=== PATIENT | male | born 1965 | race Caucasian/White ===

== ENCOUNTER 2021-02-11 09:34 | Emergency (ER) | payer MEDICARE, MEDICAID, SELFPAY ==
--- NOTE | ~2021-02-11 | XR_ITS ---
EXAMINATION: XR chest 2V DATE: 02/11/2021 10:38 INDICATION: COPD presenting with shortness of breath and decreased breath sounds TECHNIQUE: PA and lateral views of the chest were obtained. COMPARISON: Chest radiograph dated 09/12/2012 FINDINGS: 1 cm nodular opacity projecting over the right mid to lower lung zone which projects cephalad to the nipple markers. Bilateral perihilar bronchial wall thickening. No other airspace opacities, pulmonary edema, pleural effusion or pneumothorax. The cardiomediastinal silhouette is normal. Mild thoracic d extroscoliosis. Cholecystectomy clips in the right upper quadrant. IMPRESSION: 1. Bilateral perihilar bronchial wall thickening without focal airspace disease which could be due to bronchitis or reactive airway disease/asthma. 2. 1 cm indeterminate nodule at the right mid to lower lung zone. The nodule appears relatively earl h and conspicuous for its size suggesting this may be calcified but would recommend follow-up low-dos e noncontrast chest CT for more definitive determination. Reviewed, dictated and finalized at location A. [employer] IMPRESSION: 1. Bilateral perihilar bronchial wall thickening without focal airspace disease which could be due to bronchitis or reactive airway disease/asthma. 2. 1 cm indeterminate nodule at the right mid to lower lung zone. The nodule ap pears relatively smooth and conspicuous for its size suggesting this may be tank cified but would recommend follow-up low-dose noncontrast chest CT for more def initive determination.
[2021-02-11 09:54] VITALS: BP 126/84; PULSE 66; RESP 20; TEMP 37.2; O2SAT 100
--- NOTE | 2021-02-11 10:12 | ED.URI ---
HPI - URI/Sore Throat General Chief Complaint: Upper Respiratory Infection Stated Complaint: Flu Time Seen by Provider: 02/11/21 10:13 Source: patient, RN notes reviewed and old records reviewed Mode of arrival: ambulatory Limitations: no limitations History of Present Illness HPI Narrative: 55-year-old male presents to the [facility] with complaints of I think I have the flu. Patient has been feeling bad for 5 days. Has a significant past medical history to include MIs, strokes, chronic pain. Has COPD and continues to smoke. Related Data Home Medications Medication Instructions Recorded Confirmed amlodipine 10 mg PO DAILY 02/11/21 02/11/21 atorvastatin 40 mg PO DAILY 02/11/21 02/11/21 citalopram 20 mg PO DAILY 02/11/21 02/11/21 clopidogrel 75 mg PO DAILY 02/11/21 02/11/21 diazepam 5 mg PO Q6-8H PRN 02/11/21 02/11/21 fentanyl 100 mcg TRANSDERMAL Q3-4D 02/11/21 02/11/21 hydrocodone-acetaminophen 10 tablet PO Q6-8H PRN 02/11/21 02/11/21 losartan 50 mg PO DAILY 02/11/21 02/11/21 phenytoin sodium extended 100 mg PO DAILY 02/11/21 02/11/21 sertraline 100 mg PO DAILY 02/11/21 02/11/21 tamsulosin 0.4 mg PO DAILY 02/11/21 02/11/21 Allergies Allergy/AdvReac Type Severity Reaction Status Date / Time alprazolam [From Xanax] Allergy Rash Verified 02/11/21 10:08 KETOROLAC TROMETHAMINE Allergy GRAND MAL Uncoded 10/18/12 12:40 SEIZURE Review of Systems Review of Systems: All systems reviewed & are unremarkable except as noted in HPI and below Constitutional: Constitutional: Reports as per HPI, Reports chills and Reports fever(s) ENT: Reports as per HPI and Reports sore throat Cardiovascular: Cardiovascular: Reports no additional cardiovascular complaints, Denies chest pain and Denies radiating jaw, neck or arm pain Respiratory: Respiratory: Reports as per HPI, Denies chest congestion, Denies cough, Denies dyspnea and Denies wheezing Gastrointestinal: Gastrointestinal: Reports no additional gastrointestinal complaints and Denies abdominal pain Musculoskeletal: Musculoskeletal: Reports no additional musculoskeletal complaints Integumentary/Breasts: Skin/Breast: Reports system reviewed and no additional complaints, except as docu Neurologic: Reports system reviewed and no additional complaints, except as documented Psychiatric: Psychiatric: Reports no additional psychiatric complaints Allergic/Immunologic: Allergic/Immunologic: Reports no additional allergic/immunologic complaints [facility] Past Medical History Medical History (Updated 02/11/21 @ 19:24 by Joy Carpio) COPD (chronic obstructive pulmonary disease) Heart attack Stroke Social History Social History (Updated 02/11/21 @ 19:24 by Joy Carpio) Smoking status: Current every day smoker Living arrangements: with family Gender identity (if verbalized by the patient): Male Comments At the time of my signature, I reviewed and agree with the nursing past medical, surgical, social, and family history. There is no relevant family history pertinent to the patient complaint. Exam Const: General: alert and ill appearing acutely and chronically Nutritional Appearance: thin Orientation/consciousness: patient oriented x3 Limitations: no limitations HENMT: Head: normal to inspection Ears: external ears normal, TM's normal bilaterally and EAC's normal Eyes: Pupils: Equal, round and reactive pupils present Neck: Neck: normal visual inspection and no lymphadenopathy Chest: Chest palpation & inspection: normal inspection of the chest Resp: Effort & Inspection: no use of accessory muscles Auscultation: rhonchi, wheezes and diminished lung sounds Cardio: Rate: regular rate Rhythm: regular rhythm Skin: General skin exam: pallor Rashes: no rashes Neuro: General: patient oriented x3 Speech: normal speech Gait exam (Neuro): Normal gait present (Patient in wheelchair, chronic left-sided weakness secondary to stroke) Extrem: General: no pedal
[2021-02-12 18:14] LABS: SARS-CoV-2 RNA PCR Negative
== END 2021-02-11 11:37 | disposition home or self-care (01) ==
PROVIDERS: Emergency Provider Nurse Practitioner
DX: J40 Bronchitis, not specified as acute or chronic (principal); R91.1 Solitary pulmonary nodule; Z20.822 Contact with and (suspected) exposure to COVID-19; J44.9 Chronic obstructive pulmonary disease, unspecified; I25.2 Old myocardial infarction; Z86.73 Personal history of transient ischemic attack (TIA), and cerebral infarction without residual deficits; F17.200 Nicotine dependence, unspecified, uncomplicated
CPT/HCPCS: 71046; 87426; 87804; 99203; C9803; G0463; U0003; U0005

== ENCOUNTER 2022-08-31 12:16 | Emergency (ER) | payer MEDICARE, MEDICAID, SELFPAY ==
--- NOTE | ~2022-08-31 | XR_ITS ---
XR chest 2V 08/31/2022 13:36 Indication: COPD Procedure: AP and lateral views of the chest Comparison: Comparison to multiple prior studies sequentially, with oldest reviewed study dated 09/12. Findings: Asymmetric interstitial infiltrates of the left lung. No significant effusion. Heart size n ormal. No pneumothorax. No acute osseous abnormality. The lungs are hyperinflated which is consistent with, but not diagnostic of chronic obstructive pulmonary disease. Impression: 1: Asymmetric interstitial infiltrates of the left lung, suspicious for pneumonia. Reviewed, dictated and finalized at location [] Impression: 1: Asymmetric interstitial infiltrates of the left lung, suspicious for pneumon ia.
--- NOTE | ~2022-08-31 | CT_ITS ---
EXAMINATION: CT abdomen pelvis w con INDICATION: Right upper quadrant pain TECHNIQUE: Computed tomographic images of the abdomen and pelvis were obtained after the administrati on of 100 cc of Omnipaque 350 intravenous contrast. The dose-length product (DLP) was 313.65 mGy-cm. Automated exposure control and iterative reconstruction technique were employed. COMPARISON: None available FINDINGS: Minimal dependent atelectasis is present in the lung bases. The heart size is normal. Calci fied coronary artery atherosclerosis is noted. The gallbladder is surgically absent. There is moderat e enlargement of the common bile duct and central intrahepatic ducts which is likely due to post chol ecystectomy state. Pancreas divisum is noted. The liver, spleen, and adrenal glands are normal. Cysts of the kidneys measure up to 3.7 cm on the right. There is a 4 mm nonobstructing stone of the right kidney with adjacent cortical scarring of the kidney. There is calcified atherosclerosis of the aorta and many of the other arteries. No pathologically enlarged abdominal or pelvic lymph nodes are ident ified. No free intraperitoneal gas or evidence of bowel obstruction. There is antegrade intramedullar y joseph and interlocking intratrochanteric screw fixation of the left femur. IMPRESSION: 1. No CT correlate for the patient's symptoms. Reviewed, dictated and finalized at location A.
[2022-08-31 12:15] VITALS: BP 163/86; PULSE 52; RESP 18; TEMP 36.6; O2SAT 100
[2022-08-31 12:31] LABS: Basophils Absolute Auto 0.1 K/mm3 (0.0-0.1); Basophils Percent Auto 1.3 % (0.2-1.2); Eosinophils Absolute Auto 0.1 K/mm3 (0-0.3); Eosinophils Percent Auto 2.8 % (0-4.4); Hematocrit 42.4 % (42.0-52.0); Immature Granulocyte Absolute 0.01 K/mm3 (0.00-0.031); Immature Granulocyte Percent A 0.3 % (0-0.5); Lymphocytes Absolute Auto 1.63 K/mm3 (0.9-3.2); Lymphocytes Percent Auto 41.7 % (18.3-44.2); Mean Corpuscular Hemoglobin 31.8 pg (26-34); Mean Corpuscular Volume 96.4 fl (80-100); Mean Platelet Volume 9.5 fl (7.4-10.4); Monocytes Absolute Auto 0.3 K/mm3 (0.1-0.6); Monocytes Percent Auto 6.6 % (2.6-8.5); Neutrophils Absolute Auto 1.9 K/mm3 (1.3-6.7); Neutrophils Percent Auto 47.3 % (45.5-73.1); Platelet Count Result 146 k/mm3 (150-375); Red Cell Distribution Width 14.5 % (11.5-14.5); White Blood Count 3.9 K/mm3 (4.5-10.0)
[2022-08-31 12:42] LABS: Alanine Aminotransferase 13 U/L (6-50); Alkaline Phosphatase 93 U/L (38-126); Anion Gap 4 mmol/L (8-16); Aspartate Amino Transferase 23 U/L (17-59); Bilirubin,Total 0.4 mg/dL (0.2-1.3); Blood Urea Nitrogen 15 mg/dL (9-20); Calcium 8.5 mg/dL (8.4-10.2); Carbon Dioxide 28 mmol/L (22-30); Chloride 105 mmol/L (98-107); Estimated CRCL calculation 95 ml/min; Estimated Glomerular Filt Rate > 60; Glucose 78 mg/dL (65-110); Lipase 66 U/L (23-300); Potassium 3.8 mmol/L (3.4-5.0); Sodium 137 mmol/L (137-145)
[2022-08-31] MEDS: SODIUM CHLORIDE 0.9% IV 1,000 ML 150 ML IV CONT (12:42)
[2022-08-31 12:45] LABS: Appearance Urine Clear (Clear); Bilirubin Urine Negative (Negative); Blood Urine Negative (Negative); Color Urine Yellow (Yellow); Glucose Urine UA Negative (Negative); Ketones Urine Negative (Negative); Leukocyte Esterase Ur Negative LEU/UL (Negative); Nitrate Urine Negative (Negative); Protein Urine Negative (Negative); Specific Grav Ur 1.005 (1.001-1.035); Urobilinogen Urine 0.2 mg/dL (<2.0); pH Urine 5.5 (5.0-9.0)
[2022-08-31 12:49] LABS: Add Urine Microscopic? NO
--- NOTE | 2022-08-31 13:49 | ED.ABDPAIN ---
HPI - Abdominal Pain General Chief Complaint: Abdominal Pain Stated Complaint: abd pain Time Seen by Provider: 08/31/22 12:25 Source: patient Mode of arrival: ambulatory Limitations: no limitations History of Present Illness HPI narrative: 57-year-old with a history of CAD, COPD, hypertension, s/p cholecystectomy here with complaints of right upper abdominal pain for past 2 weeks. He denied any nausea, vomiting. Pain is not related to food. He denies any unusual cough or chest pain. He denies any fever or chills. No altered bowel habits. He endorses Dr. Pearl as his primary doctor at [facility] Related Data Home Medications Medication Instructions Recorded Confirmed amlodipine 10 mg tablet 10 mg PO DAILY 02/11/21 02/11/21 atorvastatin 40 mg tablet 40 mg PO DAILY 02/11/21 02/11/21 citalopram 20 mg tablet 20 mg PO DAILY 02/11/21 02/11/21 clopidogrel 75 mg tablet 75 mg PO DAILY 02/11/21 02/11/21 diazepam 5 mg tablet 5 mg PO Q6-8H PRN Anxiety 02/11/21 02/11/21 fentanyl 100 mcg/hr transdermal 100 mcg transdermal Q3-4D 02/11/21 02/11/21 patch hydrocodone 10 mg-acetaminophen 10 tablet PO Q6-8H PRN Pain 02/11/21 02/11/21 325 mg tablet losartan 50 mg tablet 50 mg PO DAILY 02/11/21 02/11/21 phenytoin sodium extended 100 mg 100 mg PO DAILY 02/11/21 02/11/21 capsule sertraline 100 mg tablet 100 mg PO DAILY 02/11/21 02/11/21 tamsulosin 0.4 mg capsule 0.4 mg PO DAILY 02/11/21 02/11/21 Allergies Allergy/AdvReac Type Severity Reaction Status Date / Time alprazolam [From Xanax] Allergy Rash Verified 02/11/21 10:08 KETOROLAC TROMETHAMINE Allergy GRAND MAL Uncoded 10/18/12 12:40 SEIZURE Review of Systems Review of Systems: All systems reviewed & are unremarkable except as noted in HPI and below Constitutional: Constitutional: Reports no additional constitutional complaints Eyes: Eyes: Reports no additional eye complaints ENT: Reports system reviewed and no additional complaints, except as documented Cardiovascular: Cardiovascular: Reports no additional cardiovascular complaints Respiratory: Respiratory: Reports no additional respiratory complaints Gastrointestinal: Gastrointestinal: Reports as per HPI Musculoskeletal: Musculoskeletal: Reports no additional musculoskeletal complaints Neurologic: Reports system reviewed and no additional complaints, except as documented PMFSH Past Medical History Medical History COPD (chronic obstructive pulmonary disease) Heart attack Stroke Social History Social History Smoking status: Current every day smoker Living arrangements: with family Gender identity (if verbalized by the patient): Male Exam Narrative: GENERAL: Well-appearing, well-nourished, and in no acute distress. HEAD: Normocephalic, atraumatic. EYES: PERRLA and EOMI. NECK: Supple. CHEST: Clear to auscultation. No respiratory distress. HEART: Regular rate and rhythm. No murmur heard. Normal peripheral pulses. ABDOMEN: Soft, tender in the right upper quadrant, nondistended, normal active bowel sounds. EXTREMITIES: Normal range of motion. No edema. SKIN: Warm, dry, no rash. NEURO: No focal deficits. Alert and oriented x3. PSYCH: Normal mood and affect. Course Course Emergency Course: Notified patient about his lab work, CT and chest x-ray findings. Cause of his pain is unknown at this time. I recommended him to follow-up with his primary doctor or preventative maintenance technician in the next few days. Vital Signs Vital signs: Vital Signs Temperature 36.6 C 08/31/22 12:15 Pulse Rate 52 L 08/31/22 12:15 Respiratory Rate 18 08/31/22 12:15 Blood Pressure 163/86 H 08/31/22 12:15 Pulse Oximetry 100 08/31/22 12:15 Oxygen Delivery Room Air 08/31/22 12:15 Temperature 36.6 C 08/31/22 12:15 Pulse Rate 52 L 08/31/22 12:15 Respiratory Rate 18 08/31/22 12:
--- NOTE | 2022-09-03 10:07 | PC.NURSE ---
LATE ENTRY This note is being entered to document information to the patient's record. The following information was omitted on [09/03/22], by [Amara NS stopped at 1335 on 08/31/22].
== END 2022-08-31 14:47 | disposition home or self-care (01) ==
PROVIDERS: Emergency Medicine; Emergency Provider Family Medicine
DX: J18.9 Pneumonia, unspecified organism (principal); R10.11 Right upper quadrant pain; I25.10 Atherosclerotic heart disease of native coronary artery without angina pectoris; I10 Essential (primary) hypertension; J44.9 Chronic obstructive pulmonary disease, unspecified; Z90.49 Acquired absence of other specified parts of digestive tract; I25.2 Old myocardial infarction; Z86.73 Personal history of transient ischemic attack (TIA), and cerebral infarction without residual deficits
CPT/HCPCS: 36415; 71046; 74177; 80053; 81003; 83690; 85025; 96360; 99284; J7030; Q9967